=== PATIENT | female | born 1985 | race Caucasian/White ===

== ENCOUNTER 2018-12-20 18:24 | Emergency (ER) | payer MEDICAID ==
[2018-12-20 19:29] VITALS: BMI 32.8
[2018-12-20] MEDS ORDERED: Sodium Chloride 0.9% 1,000 ML IV STA (19:58)
--- NOTE | 2018-12-20 20:58 | ED PDOC ---
Arrival/HPI - General Chief Complaint: Dizziness/Lightheaded Time Seen by Provider: 12/20/18 19:36 Historian: Patient - History of Present Illness Narrative History of Present Illness (Text): 12/20/18 20:57 A 33 year old female, with no significant past medical history, presents to the emergency department complaining of 1 episode of nausea earlier today, with occasional dizziness. Patient reports also feeling dehydrated. LMP was 2 months ago. Patient denies any chest pain, shortness of breath, abdominal pain, or any other complaints at this time. Past Medical History - Provider Review Nursing Documentation Reviewed: Yes - Infectious Disease Hx of Infectious Diseases: None - Tetanus Immunization Tetanus Immunization: Unknown - Cardiac Hx Cardiac Disorders: No Hx Hypertension: No - Pulmonary Hx Asthma: Yes - Neurological HX Cerebrovascular Accident: No Hx Seizures: No - Hematological/Oncological Hx Cancer: No - Genitourinary/Gynecological Hx Sexually Transmitted Diseases: No - Psychiatric Hx Substance Use: No - Surgical History Other/Comment: ovarian cyst laparoscopy Family/Social History - Physician Review Nursing Documentation Reviewed: Yes Family/Social History: No Known Family HX Smoking Status: Never Smoked Hx Alcohol Use: No Hx Substance Use: No Allergies/Home Meds Allergies/Adverse Reactions: Allergies morphine Allergy (Verified 12/20/18 19:29) ANAPHYLAXIS Penicillins Allergy (Verified 12/20/18 19:29) URTICARIA Home Medications: Home Meds Medication Instructions Recorded Confirmed No Known Home Med 12/20/18 12/20/18 Review of Systems - Physician Review All systems were reviewed & negative as marked: Yes - Review of Systems Respiratory: absent: SOB Cardiovascular: absent: Chest Pain Gastrointestinal: Nausea. absent: Abdominal Pain Neurological: Dizziness (occassionally) Physical Exam Vital Signs Reviewed: Yes Vital Signs Temp Pulse Resp BP Pulse Ox 12/20/18 19:32 97.9 F 89 18 118/79 99 Temperature: Afebrile Blood Pressure: Normal Pulse: Regular Respiratory Rate: Normal Appearance: Positive for: Well-Appearing, Non-Toxic, Comfortable Pain Distress: None Mental Status: Positive for: Alert and Oriented X 3 - Systems Exam Head: Present: Atraumatic, Normocephalic Pupils: Present: PERRL Extroacular Muscles: Present: EOMI Conjunctiva: Present: Normal Mouth: Present: Moist Mucous Membranes Neck: Present: Normal Range of Motion Respiratory/Chest: Present: Clear to Auscultation, Good Air Exchange. No: Respiratory Distress, Accessory Muscle Use Cardiovascular: Present: Regular Rate and Rhythm, Normal S1, S2. No: Murmurs Abdomen: No: Tenderness, Distention, Peritoneal Signs Back: Present: Normal Inspection Upper Extremity: Present: Normal Inspection. No: Cyanosis, Edema Lower Extremity: Present: Normal Inspection. No: Edema Neurological: Present: GCS=15, CN II-XII Intact, Speech Normal Skin: Present: Warm, Dry, Normal Color. No: Rashes Psychiatric: Present: Alert, Oriented x 3, Normal Insight, Normal Concentration Medical Decision Making ED Course and Treatment: 12/20/18 20:57 Impression: 33 year old female with nausea and occasional dizziness. Physical exam is benign. Plan: -- EKG -- IV Fluids -- Labs -- Reassess and disposition Progress Notes: - EKG Interpretation EKG Interpretation (Text): 12/20/18 22:44 NSR @ 83,no acute changes Interpreted by ED Physician: Yes Type: 12 lead EKG - Medication Orders Current Medication Orders: Sodium Chloride (Sodium Chloride 0.9%) 1,000 mls @ 999 mls/hr IV .Q1H1M STA Stop: 12/20/18 20:58 Last Admin: 12/20/18 20:44 Dose: 999 mls/hr eMAR Start Stop Document 12/20/18 20:44 [place] (Rec: 12/20/18 20:45 [place] [facility] [id number] Intravenous Solution Start Date 12/20/18 Start Time 20:45 - Scribe Statement The provider has reviewed the documentation as recorded by the Roxanne Ramírez Provider Scribe Attestation: All medical record entries made by the Brookeibtori were at my direction and person ally dictated by me. I have reviewed the chart and agree that the record accurately reflects my personal performance of the history, physical exam, medical decision making, and the department course for this patient. I have also personally directed, reviewed, and agree with the discharge instructions and disposition. Disposition/Present on Arrival - Present on Arrival Any Indicators Present on Arrival: No History of DVT/PE: No History of Uncontrolled Diabetes: No Urinary Catheter: No History of Decub. 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
[2018-12-20 20:59] LABS: HEMOGLOBIN 13.3 g/dL (12.0-16.0); MEAN CELL VOLUME 89.3 fl (80.0-105.0); MEAN CORPUSCULAR HEMOGLOBIN 30.4 pg (25.0-35.0); MEAN PLATELET VOLUME 9.1 fl (7.0-11.0); RBC 4.38 10^6/uL (3.5-6.1); RED CELL DISTRIBUTION WIDTH 13.3 % (11.5-14.5); WHITE BLOOD COUNT 12.4 10^3/uL (4.5-11.0)
[2018-12-20 21:08] LABS: ALB/GLOB RATIO 1.3 (1.1-1.8); ALBUMIN 4.6 g/dL (3.0-4.8); ALT/SGPT 18 U/L (7-56); AST/SGOT 26 U/L (14-36); BLOOD UREA NITROGEN 14 mg/dL (7-21); CALCIUM 9.4 mg/dL (8.4-10.5); GFR NON-AFRICAN AMERICAN > 60; LIPASE 48 U/L (23-300)
[2018-12-20 21:25] LABS: TROPONIN I < 0.01 ng/mL
[2018-12-20 22:59] VITALS: BP 105/70; PULSE 86; RESP 16; TEMP 98; O2SAT 100
--- NOTE | 2018-12-21 10:58 | CARD ---
APPROVED REPORT Date of service: 12/20/2018 EKG Measurement Heart [id number] <Conclusion> Normal sinus rhythm with sinus arrhythmia Normal ECG
== END 2018-12-20 22:58 | disposition home or self-care (01) ==
LOC: ED 18:24
DX: O26.90 Pregnancy related conditions, unspecified, unspecified trimester (principal); Z3A.00 Weeks of gestation of pregnancy not specified
CPT/HCPCS: 80053; 81025; 82550; 83615; 83690; 84484; 84702; 85027; 93005; 99285; J7030